=== PATIENT | female | born 1940 | race Caucasian/White ===

== ENCOUNTER → 2016-11-26 | Outpatient (CLI) | payer MEDICARE, BC ==
[~2016-11-26] MED LIST: ALDACTONE 25MG25 M1 PO; ASPIRIN E.C. 8181 MG PO; CINNAMON500 MG PO; CLARITIN 1010 MG/TAB PO; CO-Q-10 100 MG-1 SGL PO; COZAAR100 MG PO; EO MEGA PO; FIBER TABLETS1 TAB PO; FLAXSEED OIL1 CAP PO; GLUCOPHAGE1000 MG PO; GLUCOSAMINE & C1 CA2 PO; MAXZIDE-25MG TA1 TAB PO; MULTIPLE VITAMI1 TA3 PO; NEURONTIN100 MG/CAP PO; NEURONTIN300 MG/CAP PO; PRAVACHOL 40MG40 MG PO; PRILOSEC 20MG20 MG PO; SYNTHROID0.05 MG/TA PO; VITAMIN B12 PO; VITAMIN D31000 IU PO; ZYRTEC 10MG10 MG PO; [UNRECOGNIZED DRUG - OTHER] PO; [UNRECOGNIZED DRUG - OTHER] PO
== END ==
LOC: MC.RAD 14:20
DX: Z12.31 Encounter for screening mammogram for malignant neoplasm of breast (principal)

== ENCOUNTER → 2017-05-19 | Outpatient (CLI) | payer MEDICARE, BC | LOC: MHCPAIN 12:02 | DX: G89.29 Other chronic pain (principal); M47.817 Spondylosis without myelopathy or radiculopathy, lumbosacral region; M54.16 Radiculopathy, lumbar region; M96.1 Postlaminectomy syndrome, not elsewhere classified | CPT/HCPCS: G0463 ==

== ENCOUNTER → 2017-05-27 | Outpatient (CLI) | payer MEDICARE, BC | LOC: MHCPAIN 12:07 | DX: R21 Rash and other nonspecific skin eruption (principal) | CPT/HCPCS: G0463; J1100; Q9967 ==

== ENCOUNTER → 2017-06-10 | Outpatient (CLI) | payer MEDICARE, BC | LOC: MHCPAIN 10:47 | DX: M47.817 Spondylosis without myelopathy or radiculopathy, lumbosacral region (principal) | CPT/HCPCS: J1100; Q9967 ==

== ENCOUNTER → 2017-07-14 | Outpatient (CLI) | payer MEDICARE, BC | LOC: MHCPAIN 10:45 | DX: G89.29 Other chronic pain (principal); M47.27 Other spondylosis with radiculopathy, lumbosacral region; M53.3 Sacrococcygeal disorders, not elsewhere classified; M96.1 Postlaminectomy syndrome, not elsewhere classified; Z79.82 Long term (current) use of aspirin | CPT/HCPCS: G0463 ==

== ENCOUNTER 2017-08-27 12:45 | Outpatient (RCR) | payer MEDICARE, BC | END 2017-08-29 | LOC: WSPT | DX: M47.27 Other spondylosis with radiculopathy, lumbosacral region (principal); M96.1 Postlaminectomy syndrome, not elsewhere classified; G89.29 Other chronic pain; Z90.49 Acquired absence of other specified parts of digestive tract; Z98.890 Other specified postprocedural states | CPT/HCPCS: G8978-GP; G8979-GP ==

== ENCOUNTER 2017-09-13 12:30 | Outpatient (RCR) | payer MEDICARE, BC | END 2017-09-13 17:31 | LOC: WSPT 12:30 | DX: M47.27 Other spondylosis with radiculopathy, lumbosacral region (principal); M96.1 Postlaminectomy syndrome, not elsewhere classified; G89.29 Other chronic pain; Z98.890 Other specified postprocedural states; Z90.49 Acquired absence of other specified parts of digestive tract | CPT/HCPCS: G8978-GP; G8979-GP; G8980-GP ==

== ENCOUNTER → 2017-12-16 | Outpatient (CLI) | payer MEDICARE, BC | LOC: MC.RAD 12:20 | DX: Z12.31 Encounter for screening mammogram for malignant neoplasm of breast (principal) ==

== ENCOUNTER → 2018-12-23 | Outpatient (CLI) | payer MEDICARE, BC | LOC: MC.RAD 09:35 | DX: Z12.31 Encounter for screening mammogram for malignant neoplasm of breast (principal) ==

== ENCOUNTER 2019-04-07 13:45 | Outpatient (RCR) | payer MEDICARE, BC | END 2019-04-09 | disposition home or self-care (01) | LOC: WSPT | DX: M43.16 Spondylolisthesis, lumbar region (principal); M54.40 Lumbago with sciatica, unspecified side; R20.2 Paresthesia of skin; R20.0 Anesthesia of skin; Z98.890 Other specified postprocedural states; Z98.1 Arthrodesis status | CPT/HCPCS: G0283-GP ==

== ENCOUNTER 2019-04-21 14:45 | Outpatient (RCR) | payer MEDICARE, BC | END 2019-07-09 | disposition home or self-care (01) | LOC: WSPT | DX: M51.26 Other intervertebral disc displacement, lumbar region (principal); M48.061 Spinal stenosis, lumbar region without neurogenic claudication; M43.16 Spondylolisthesis, lumbar region ==

== ENCOUNTER 2019-05-12 01:36 | Emergency (ER) | payer MEDICARE, BC ==
[2006-04-16 06:03] VITALS: BP 149/76
[~2019-05-12] VITALS: Ht 160 cm; Wt 80.0 kg
[2019-05-12 01:43] VITALS: BP 133/90; PULSE 53; TEMP 97
== END 2019-05-12 02:15 | disposition left against medical advice (07) ==
LOC: COL.ER 01:36
DX: M25.571 Pain in right ankle and joints of right foot (principal); Z79.82 Long term (current) use of aspirin; Z79.84 Long term (current) use of oral hypoglycemic drugs

== ENCOUNTER → 2020-01-15 | Outpatient (CLI) | payer MEDICARE, BC | LOC: MC.RAD 13:48 | DX: Z12.31 Encounter for screening mammogram for malignant neoplasm of breast (principal) ==

== ENCOUNTER → 2021-02-18 | Outpatient (CLI) | payer MEDICARE, BC | LOC: MC.RAD 09:45 | DX: Z12.31 Encounter for screening mammogram for malignant neoplasm of breast (principal) ==

== ENCOUNTER 2021-12-21 12:13 | Inpatient (IN) | payer MEDICARE, BC ==
[~2021-12-21] VITALS: Ht 160 cm; Wt 62.8 kg
[2021-12-21] MEDS ORDERED: TOPROL XL 25MG25 MG PO (12:30)
[2021-12-21] MEDS ORDERED: ELIQUIS 5MG PO (12:31)
[2021-12-21 12:52] LABS: BASO # 0.1 K/mm3 (0.0-0.2); BASO % 0.9 % (0.0-2.0); EOS # 0.1 K/mm3 (0.0-0.7); EOS % 1.4 % (0.0-4.0); GRAN # 4.3 K/mm3 (1.4-6.5); HEMATOCRIT 39.9 % (37.0-47.0); HEMOGLOBIN 13.6 g/dl (12.5-16.0); LYMPH # 1.1 K/mm3 (1.2-3.4); LYMPH % 18.2 % (20.0-51.0); MEAN CELL VOLUME 89 fl (80.0-100.0); MEAN CORPUSCULAR HEMOGLOBIN 30 pg (27-31); MEAN CORPUSCULAR HGB CONC 34 g/dl (33.0-37.0); MEAN PLATELET VOLUME 10.5 fl (7.4-10.4); MONO # 0.3 K/mm3 (0.1-0.6); MONO % 5.2 % (1.7-9.3); PLATELET COUNT 142 K/mm3 (130-400); RED BLOOD COUNT 4.49 M/mm3 (4.10-5.30); REDCELL DISTRIBUTION WIDTH-CV 12.8 % (11.5-14.5)
[2021-12-21 13:16] LABS: ALBUMIN 4.1 gm/dL (3.4-4.8); BILIRUBIN,TOTAL 0.7 mg/dL (0.2-1.2); CALCIUM 9.2 mg/dL (8.4-10.2); CREATININE, serum 0.98 mg/dL (0.57-1.11); POTASSIUM 3.8 mmol/L (3.5-4.5)
[2021-12-21 13:40] LABS: COLLECTION METHOD CLEAN CATCH
[2021-12-21 13:46] LABS: PH 7 (5-8); SQUAMOUS EPITHELIAL None Seen /hpf (0-10); URINE APPEARANCE Clear (CLEAR/HAZY); URINE BACTERIA None Seen /hpf (NONE SEEN); URINE BILIRUBIN Negative (NEGATIVE); URINE BLOOD 1+ (NEGATIVE); URINE COLOR Straw (YELLOW); URINE GLUCOSE Negative (NEGATIVE); URINE KETONE Negative (NEGATIVE); URINE LEUKOCYTE ESTERASE Negative (NEGATIVE); URINE NITRATE Negative (NEGATIVE); URINE PROTEIN(semi-quant) Negative (NEGATIVE); URINE RBC 0-2 /hpf (0-2); URINE UROBILINOGEN Negative (NEGATIVE)
--- NOTE | 2021-12-21 14:20 | NUR ---
Patient to room 357 from the ED, ambulated with standby assist to the ed. A&Ox4. VSS. IV CDI. Nurse oriented the patient to location, room and call light. Denies pain and discomfort. No further needs expressed. Call light within reach. Bed alarm on
[2021-12-21] MEDS ORDERED: GLUCOSAMINE & C1 CA2 PO (14:32)
[2021-12-21] MEDS ORDERED: REQUIP 0.5MG0.5 MG PO (15:04)
[2021-12-21] MEDS ORDERED: LIPITOR20 MG PO (15:04)
[2021-12-21 15:52] VITALS: BP 171/78; PULSE 50
[2021-12-21 17:40] VITALS: BP 189/67; PULSE 57
[2021-12-21 17:42] VITALS: BP 159/86; PULSE 60
[2021-12-21 17:43] VITALS: BP 152/79; PULSE 66
--- NOTE | 2021-12-21 18:09 | NUR ---
Patient had an uneventful day. A&Ox4. VSS. IV CDI. Patient reports some dizziness with position changes, complaints of "pin like" feeling in legs. Patient has been calling nursing staff for assistance with ambulation. Patient NPO after midnight for a possible procedure. No further needs expressed. Call light within reach. Bed alarm on
[2021-12-21 20:03] VITALS: BP 155/62; PULSE 59; TEMP 98.6
[2021-12-21 23:54] VITALS: BP 141/62; PULSE 63; TEMP 98.4
[2021-12-22 03:51] VITALS: BP 133/63; PULSE 46; TEMP 98.2
[2021-12-22 06:54] LABS: CALCIUM 9.1 mg/dL (8.4-10.2); CREATININE, serum 0.8 mg/dL (0.57-1.11); MAGNESIUM 1.6 mg/dL (1.6-2.6); POTASSIUM 3.5 mmol/L (3.5-4.5)
[2021-12-22 07:17] LABS: TSH w REFLEX 0.824 uIU/mL (0.350-4.940)
--- NOTE | 2021-12-22 08:11 | NUR ---
ASSESSMENT COMPLETE FOR THIS SHIFT. PT RESTING IN BED WATCHING TV. PT DENIES PAIN, PALPITATIONS, SOB, N,V OR DIZZINESS. PT DID HAVE A COUPLE OF BOUTS OF LOOSE STOOLS TONIGHT. PT STATED THEY (LOOSE STOOLS) NORMALLY HAPPEN WHEN SHE GOES LONG PERIODS WITHOUT EATING. PT ASKED DAYSHIFT TO GIVE HER HER 2100HRS NEURONTIN, WHICH WAS GIVEN TO PT AROUND 1700HRS. PT EXPRESSED CONCERN THAT THE NEURONTIN WOULD NOT LAST ALL NIGHT BECAUSE SHE TOOK IT EARLY. CONCERNS PASSED ON TO HOSPITALIST. HOSPITALIST SAID TO SEE HOW SHE DOES TONIGHT. PT EXPRESSED SOME NERVE PAIN AROUND 0300HRS, BUT WAS GOING TO TRY TO WAIT IT OUT, IF SHE COULD, BY TRYING TO STAY STILL IN BED. PT EXPRESSED NO OTHER NEEDS AT THIS TIME. CALL LIGHT WITHIN REACH.
[2021-12-22 08:26] VITALS: BP 183/67; PULSE 46; TEMP 98.1
--- NOTE | 2021-12-22 09:41 | NUR ---
Pt assessment complete. Pt is sitting up on the side of the bed upon entry, she is A/O x4. Her breathing is even and unlabored on RA. Pt denies SOB. Pt denies any pain at this time. POC discussed with patient who verbalizes understanding. No needs at this time. Call light within reach.
--- NOTE | 2021-12-22 10:22 | NUR ---
Initial visit; Patient doing well and expects to be discharged today. She said she is doing well and requested that [employer] pray with her and keep her in [employer]'s prayers. [employer] will do so.
--- NOTE | 2021-12-22 10:22 | NUR ---
Farrowing Worker and SW student attended clinical rounds with the team then met with patient to discuss discharge planning. Patient lives in [place] with her , Abdifatah (ph#[phone]) and sees Dr. Calderon for primary care. Patient obtains medications from [email or web address] online and reports they are mailed to her. Patient also uses [facility] or [facility] as needed. Patient uses a cane for ambulation when she is outside of her home and reports independence with ADLS. Patient advised she has [facility] which designates her , Abdifatah. Patient has five children: Carter, Patrick, Roshni, Messi, and Kalyan. Patient plans to return home upon discharge. Discharge Plan: Home
[2021-12-22 11:03] VITALS: BP 145/77; PULSE 65; TEMP 97.2
[2021-12-22] MEDS ORDERED: NORVASC 5MG5 MG/TAB PO (12:33)
--- NOTE | 2021-12-22 13:57 | NUR ---
Discharge instructions and paperwork reviewed with patient. All questions answered at this time. IV to LFA dc'd catheter tip intact. Pt wheeled out of facility by staff member at this time.
== END 2021-12-22 13:57 | disposition home or self-care (01) | DRG 262 ==
LOC: COL.ER 12:13 → MEDICAL 13:42
PROVIDERS: Nurse Practitioner; ADMIT Internal Medicine
PROC: 0JH632Z Insertion of Monitoring Device into Chest Subcutaneous Tissue and Fascia, Percutaneous Approach (ICD-10-PCS; principal; 2021-12-22)
DX: R00.1 Bradycardia, unspecified (principal); I49.5 Sick sinus syndrome; T44.7X5A Adverse effect of beta-adrenoreceptor antagonists, initial encounter; I10 Essential (primary) hypertension; I48.0 Paroxysmal atrial fibrillation; R55 Syncope and collapse; I08.3 Combined rheumatic disorders of mitral, aortic and tricuspid valves; E03.9 Hypothyroidism, unspecified; E11.40 Type 2 diabetes mellitus with diabetic neuropathy, unspecified; E78.5 Hyperlipidemia, unspecified; G25.81 Restless legs syndrome; Z79.01 Long term (current) use of anticoagulants; Z79.84 Long term (current) use of oral hypoglycemic drugs; Z85.42 Personal history of malignant neoplasm of other parts of uterus; Z90.710 Acquired absence of both cervix and uterus; Z88.1 Allergy status to other antibiotic agents; Z88.8 Allergy status to other drugs, medicaments and biological substances
CPT/HCPCS: C1764; G0378; J7030

== ENCOUNTER → 2022-05-13 | Outpatient (CLI) | payer MEDICARE, BC ==
[~2022-05-13] MED LIST changes: +ELIQUIS 5MG PO; +LIPITOR20 MG PO; +NORVASC 5MG5 MG/TAB PO; +REQUIP 0.5MG0.5 MG PO; +TOPROL XL 25MG25 MG PO
== END ==
LOC: MC.RAD 13:36
DX: Z12.31 Encounter for screening mammogram for malignant neoplasm of breast (principal)

== ENCOUNTER → 2024-05-26 | Outpatient (CLI) | payer MEDICARE, BC | LOC: MC.RAD 13:34 | DX: Z12.31 Encounter for screening mammogram for malignant neoplasm of breast (principal) ==